=== PATIENT | male | born 1975 | race Caucasian/White ===

== ENCOUNTER 2018-11-02 01:08 | Emergency (ER) | payer SELFPAY ==
--- NOTE | 2018-11-02 01:34 | ED Physician Chart ---
ED Chief Complaint/HPI - Patient Information Date Seen:: 11/02/18 Time Seen:: 01:27 Chief Complaint:: Shaking History of Present Illness:: 43 yo male has been taking "viagra-like" drugs purchased from a [employer] store for 4 months. About 3-4 months ago, pt had one episode of body shaking and sweaty after taking the "viagra-like" drug which resolved 4 hours later. Today, pt took the another "viagra-like" drug, which caused worse symptoms of body tremor , sweaty and weakness for 1 hour. Pt could not tolerate it and called 911. Pt was brought to ER for evaluation. In addition, pt took antibiotics bactrim and keflex for a right posterior upper neck abscess. Pt had the neck abscess drained at outside hospital but was told the mass was too firm to drain any pus. Allergies:: Allergies Allergy/AdvReac Type Severity Reaction Status Date / Time No Known Allergies Allergy Verified 11/02/18 01:25 ED Review of Systems - Review of Systems General/Constitutional: No fever, Weakness Skin: No skin lesions Head: Headache Eyes: No pain ENT: No nasal drainage Neck: Neck pain, Mass noted (right posterior upper neck painful mass) Cardio Vascular: No chest pain, Palpitations Pulmonary: No SOB GI: Nausea, No vomiting Musculoskeletal: No bone or joint pain Neurological: No focal symptoms ED Past Medical History - Past Medical History Past Medical History: No significant medical hx Social History: Smoker, No Alcohol, No Drug Use, Other ([employer]) Surgical History: None Family Medical History - Family Member Mother History Unknown: Yes ED Physical Exam - Physical Examination General/Constitutional: Awake, Alert Other Gen/Cons comments:: Anxious Head: Atraumatic Eyes: PERRL, EOMI Other Skin comments:: generalized redness Neck: No nuchal rigidity Respiratory: No Wheeze/Rhonchi/Rales Cardio Vascular: RRR, No murmur, gallop, rubs, NL S1 S2 GI: No tenderness/rebounding/guarding Extremities: normal strength in all extremities Neuro/Psych: No focal deficits ED Labs/Radiology/EKG Results - Lab Results Results: Laboratory Last Values WBC 14.3 Th/cmm (4.8-10.8) H 11/02/18 02:00 RBC 6.39 Mil/cmm (4.30-5.70) H 11/02/18 02:00 Hgb 15.0 gm/dL (12-16) 11/02/18 02:00 Hct 47.3 % (41.0-60) 11/02/18 02:00 MCV 74.1 fl (80-99) L 11/02/18 02:00 MCH 23.5 pg (26.0-30.0) L 11/02/18 02:00 MCHC Differential 31.7 pg (28.0-36.0) 11/02/18 02:00 RDW 12.8 % (11.5-20.0) 11/02/18 02:00 Plt Count 394 Th/cmm (150-400) 11/02/18 02:00 MPV 9.8 fl 11/02/18 02:00 Neutrophils % 61.3 % (40.0-80.0) 11/02/18 02:00 Lymphocytes % 28.7 % (20.0-50.0) 11/02/18 02:00 Monocytes % 7.8 % (2.0-10.0) 11/02/18 02:00 Eosinophils % 1.7 % (0.0-5.0) 11/02/18 02:00 Basophils % 0.5 % (0.0-2.0) 11/02/18 02:00 Sodium 138 mEq/L (136-145) 11/02/18 02:00 Potassium 3.9 mEq/L (3.5-5.1) 11/02/18 02:00 Chloride 102 mEq/L (98-107) 11/02/18 02:00 Carbon Dioxide 24.4 mEq/L (21.0-31.0) 11/02/18 02:00 Anion Gap 15.5 (7.0-16.0) 11/02/18 02:00 BUN 20 mg/dL (7-25) 11/02/18 02:00 Creatinine 1.2 mg/dL (0.7-1.3) 11/02/18 02:00 Est GFR ( Amer) > 60.0 ml/min (>90) 11/02/18 02:00 Est GFR (Non-Af Amer) > 60.0 ml/min 11/02/18 02:00 BUN/Creatinine Ratio 16.7 11/02/18 02:00 Glucose 130 mg/dL (70-105) H 11/02/18 02:00 Calcium 9.9 mg/dL (8.6-10.3) 11/02/18 02:00 Total Bilirubin 0.4 mg/dL (0.3-1.0) 11/02/18 02:00 AST 29 U/L (13-39) 11/02/18 02:00 ALT 72 U/L (7-52) H 11/02/18 02:00 Alkaline Phosphatase 111 U/L (34-104) H 11/02/18 02:00 Troponin I 0.01 ng/mL (0.01-0.05) 11/02/18 02:00 B-Natriuretic Peptide < 5.0 pg/mL (5.0-100.0) L 11/02/18 02:00 Total Protein 8.3 gm/dL (6.0-8.3) 11/02/18 02:00 Albumin 4.8 gm/dL (4.2-5.5) 11/02/18 02:00 Globulin 3.5 gm/dL 11/02/18 02:00 Albumin/Globulin Ratio 1.4 (1.0-1.8) 11/02/18 02:00 - EKG Interpretations EKG Time:: 01:47 Rate & Rhythm: 129 bpm, SR [place]: LVH Intervals: borderline prolonged QT interval ED Assessment - Assessment General Assessment: Sinus tachycardia secondary to unknown stimulant Hypertension Leukocytosis Neck abscess Assessment/Comments:: CBC, CMP, UA, urine drug screen Zofran NS 1L IV bolus Levaquin 750mg IV NS 1L IV bolus Pantoprazole 40mg IV Metoprolol 25mg PO ED Septic Shock - . Is Septic Shock (SBP<90, OR Lactate>4 mmol\\L) present?: No ED Reassessment (Disposition) - Reassessment Reassessment:: Pt felt better, heart rate decreased Reassessment Condition:: Improved - Aftercare/Follow up Instructions Notes:: Educated pt to avoid unsafe street drugs/stimulants. Follow up PCP. - Patient Disposition Discharge/Transfer:: Home
[2018-11-02] MEDS ORDERED: Sodium Chloride 0.9% 1,000 ML IV ONE ×2 (01:55→06:26)
[2018-11-02 02:13] LABS: % BASOPHILS 0.5 % (0.0-2.0); % EOSINOPHILS 1.7 % (0.0-5.0); % LYMPHOCYTES 28.7 % (20.0-50.0); % MONOCYTES 7.8 % (2.0-10.0); % NEUTROPHILS 61.3 % (40.0-80.0); BASOPHILE ABSOLUTE 0.1 Th/cumm (0-0.2); EOSINOPHILE ABSOLUTE 0.2 Th/cmm (0.1-0.4); HEMATOCRIT 47.3 % (41.0-60); LYMPHOCYTE ABSOLUTE 4.1 Th/cmm (1.5-3.0); MEAN CELL VOLUME 74.1 fl (80-99); MEAN CORPUSCULAR HEMOGLOBIN 23.5 pg (26.0-30.0); MEAN CORPUSCULAR HGB CONC 31.7 pg (28.0-36.0); MEAN PLATELET VOLUME 9.8 fl; MONOCYTE ABSOLUTE 1.1 Th/cmm (0.3-1.0); NEUTROPHILE ABSOLUTE 8.8 Th/cmm (1.8-8.0); PLATELET COUNT 394 Th/cmm (150-400); RED BLOOD COUNT 6.39 Mil/cmm (4.30-5.70); RED CELL DISTRIBUTION WIDTH 12.8 % (11.5-20.0); WHITE BLOOD COUNT 14.3 Th/cmm (4.8-10.8)
[2018-11-02 02:27] LABS: ALB/GLOB RATIO 1.4 (1.0-1.8); ALBUMIN 4.8 gm/dL (4.2-5.5); ALKALINE PHOSPHATASE 111 U/L (34-104); ANION GAP 15.5 (7.0-16.0); BILIRUBIN,TOTAL 0.4 mg/dL (0.3-1.0); BUN - UREA NITROGEN 20 mg/dL (7-25); CALCIUM SERUM 9.9 mg/dL (8.6-10.3); CARBON DIOXIDE 24.4 mEq/L (21.0-31.0); CHLORIDE 102 mEq/L (98-107); CREATININE - SERUM 1.2 mg/dL (0.7-1.3); GFR AFRICAN-AMERICAN > 60.0 ml/min (>90); GFR NON AFRICAN-AMERICAN > 60.0 ml/min; GLUCOSE 130 mg/dL (70-105); POTASSIUM SERUM 3.9 mEq/L (3.5-5.1); SGOT 29 U/L (13-39); SGPT/ALT 72 U/L (7-52); SODIUM SERUM 138 mEq/L (136-145); TOTAL PROTEIN,SERUM 8.3 gm/dL (6.0-8.3)
[2018-11-02] MEDS ORDERED: Levofloxacin 750mg/150mL 750 MG/150 ML BAG IV ONE ×2 (06:27→06:30)
== END 2018-11-02 08:45 | disposition home or self-care (01) ==
LOC: ER 01:08
DX: I10 Essential (primary) hypertension (principal); L02.11 Cutaneous abscess of neck; D72.829 Elevated white blood cell count, unspecified; R00.0 Tachycardia, unspecified; F17.200 Nicotine dependence, unspecified, uncomplicated
CPT/HCPCS: 99284; 96365; 96375; 93005; 84484; 83880; 36415; 85025; 80053; J1956; C9113; J2405; J7030; Z7502